=== PATIENT | male | born 1950 | race African-American/Black ===

== ENCOUNTER → 2024-11-06 | Outpatient (REF) | payer MEDICARE ==
[~2024-11-06] MED LIST: AMLODIPINE BESY10 MG PO; CRESTOR40 MG PO; FLOMAX0.4 MG PO; LISINOPRIL10 MG PO; METOPROLOL SUCC25 MG PO; TRESIBA FL100 UNIT/1 SC
== END ==
LOC: NM 10-31 12:29
PROVIDERS: ATTEND Urology
DX: C61 Malignant neoplasm of prostate (principal)
CPT/HCPCS: 78306; A9503